=== PATIENT | male | born 1975 | race Caucasian/White ===

== ENCOUNTER 2025-04-26 13:48 | Emergency (ER) | payer OTHER, SELFPAY ==
[2025-04-26 13:54] VITALS: BP 137/87; PULSE 104; RESP 20; TEMP 36.3; O2SAT 100
--- NOTE | 2025-04-26 14:00 | ED_ITS ---
HPI - Male Genitourinary General Chief complaint: Urogenital-Male Stated complaint: kidney pains Time Seen by Provider: 04/26/25 14:08 Source: patient and RN notes reviewed Mode of arrival: ambulatory Limitations: no limitations History of Present Illness HPI Narrative: 49-year-old male presents with concern for ?kidney pain?. He reports he has had this pain on and off for years. Reports his kidneys feel inflamed. Reports it has gotten worse over the last couple of days. He reports he occasionally has cloudy urine and occasional urine that smells like ammonia. He denies dysuria, frequency, urgency, stabbing flank pain. He denies fever, body aches, chills, sweats. He denies nausea, vomiting. MD Complaint: other Related Data Home Medications ?Medication ?Instructions ?Recorded ?Confirmed ?Last Taken ?Type No Home Medications 04/26/25 Unknown History Allergies Allergy/AdvReac Type Severity Reaction Status Date / Time Penicillins Allergy Unknown Unknown Verified 04/26/25 14:02 Review of Systems Review of Systems: CONSTITUTIONAL: Denies malaise, chills, sweats, or fever. CARDIOVASCULAR: Denies chest pain, palpitations, or edema. RESPIRATORY: Denies cough or dyspnea. GASTROINTESTINAL: Denies abdominal pain, nausea, vomiting, diarrhea GENITOURINARY: Denies dysuria, frequency, urgency, suprapubic pressure. Reports bilateral flank pain. Denies hematuria. SKIN: Denies rash or itching. MUSCULOSKELETAL: Denies back pain or myalgia. All systems reviewed & are unremarkable except as noted in HPI and below PMFSH Comments At time of signature, agree with nursing past medical, surgical, social and family history. There is no relevant family history pertinent to the presenting complaint Exam Narrative: GENERAL: Well-appearing, well-nourished, and in no acute distress. HEAD: Normocephalic. EYES: PERRLA, conjunctivae clear. NECK: Supple. No lymphadenopathy CHEST: Clear to auscultation. No respiratory distress. HEART: Regular rate and rhythm. ABDOMEN: Soft, nontender upon palpation, nondistended, normal active bowel sounds, no palpable or pulsatile masses, no guarding. No CVA tenderness SKIN: Warm, dry, no rash. NEURO: Alert and oriented x3. PSYCH: Normal mood and affect Course Course Emergency Course: Patient is aware of diagnosis, understands and agrees to treatment plan. Anticipatory guidance given. Patient agrees to follow-up as directed and is aware of reasons to seek care at the emergency department. Portions of this record may have been created with voice recognition software Level of Care: Express Care Visit Vital Signs Vital signs: Vital Signs Temperature 97.4 F L 04/26/25 13:54 Pulse Rate 104 H 04/26/25 13:54 Respiratory Rate 20 04/26/25 13:54 Blood Pressure 137/87 04/26/25 13:54 Pulse Oximetry 100 04/26/25 13:54 Oxygen Delivery Room Air 04/26/25 13:54 Temperature 97.4 F L 04/26/25 13:54 Pulse Rate 104 H 04/26/25 13:54 Respiratory Rate 20 04/26/25 13:54 Blood Pressure 137/87 04/26/25 13:54 Pulse Oximetry 100 04/26/25 13:54 Oxygen Delivery Room Air 04/26/25 13:54 Reviewed. Critical Care Time Critical Care Time Critical Care Time: No Discharge Plan Discharge Clinical Impression: Bilateral flank pain Patient Disposition: Home Condition: Stable Instructions: Flank Pain (ED) Additional Instructions: 1) Please follow-up with your primary care doctor in the next 1-2 days. 2) If you have any worsening of symptoms or any other urgent concerns please go to the ER. 3) Please continue taking your home medications as usual. 4) Please read and follow information included in discharge instructions. Having an established primary care provider is essential to your health. Please call [phone] for help finding a primary care provider in your area that accepts your insurance. Patient Language: Romansh Follow-up/Referrals: PHYSICIAN,INDUSTRIAL ANALYST [Primary Care Provider] - Angelo Blunt MD [Physician] - Attila Guardado MD [Physician] - Time of Disposition: 14:17
[2025-04-26 14:09] LABS: EDUAAPPEAR Clear; EDUABILI Negative (Negative); EDUABLOOD Negative (Negative); EDUACOLOR1 Amber; EDUAGLUCOSE Negative (Negative); EDUAKETONE Negative (Negative); EDUALEUKO Negative (Negative); EDUANITRATE Negative (Negative); EDUAPH 6.5; EDUAPROTEIN 1+ (Negative); EDUAUROBILI 0.2
== END 2025-04-26 14:20 | disposition home or self-care (01) ==
PROVIDERS: Emergency Provider Nurse Practitioner
DX: R10.9 Unspecified abdominal pain (principal)
CPT/HCPCS: 81003; 99202; G0463